=== PATIENT | female | born 1935 | race Caucasian/White ===

== ENCOUNTER 2024-05-30 07:58 | Inpatient (IN) | payer OTHER, SELFPAY ==
--- NOTE | 2024-04-26 12:41 | CM ---
Addendum entered by Elaina Luevano 05/28/24 10:42:
Spoke again with patient. She has obtained a commode.
Original Note:
Patient is scheduled for an elective L TKR on 05/09/24. Spoke with patient prior to surgery via telephone. Introduced role of Orthopedic Navigator. Patient reports that she lives with her daughter in a two story home. There are no steps to enter and
a flight of steps to the second floor. She currently functions independently and uses a cane or rollator when she goes out. She also has a rolling walker, shower seat, comfort height toilets and grab bars by the toilet. She has never had VN
services. PCP is Dr. Dioni Robb.
Discussed orthopedic program and post surgical plans. Reviewed anticipated length of stay and that goal is for her to return home at discharge. Also reviewed outpatient PT. Patient is in agreement with tentative plan and will go directly to
outpatient PT at [facility]. She will have support from her daughter when she goes home.
Patient will complete online education.
Plan: Orthopedic Navigator will remain available to assist with the care of patient and will reassess discharge needs after surgery.
[2024-05-09 12:11] VITALS: BMI 35.1
[2024-05-09 13:57] LABS: Hematocrit 39.5 % (37.0-47.0); Hemoglobin 13.5 g/dL (12.0-16.0); Mean Corp Hgb Conc. 34.2 g/dL (33.0-37.0); Mean Corpuscular Hgb 31.7 pg (27.0-31.0); Mean Corpuscular Volume 92.7 fL (81.0-99.0); Mean Platelet Volume 11.1 fL (7.4-10.4); Platelet Count 238 10^3/uL (130-400); Red Blood Cell Count 4.26 10^6/uL (4.20-5.40); White Blood Cell Count 11.1 10^3/uL (4.8-10.8)
[2024-05-09 14:30] LABS: ALT (SGPT) 20 U/L (0-35); AST (SGOT) 30 U/L (14-36); Albumin 4.3 g/dl (3.5-5.0); Alkaline Phosphatase 80 U/L (38-126); Blood Urea Nitrogen 23 mg/dl (7-17); Calcium 10.1 mg/dl (8.4-10.2); Carbon Dioxide 29 mmol/L (22-30); Chloride 97 mmol/L (98-107); Estimated Creatinine Clearance 74 ml/min; Glucose 105 mg/dl (70-99); Potassium 4.6 mmol/L (3.5-5.1); Sodium 136 mmol/L (135-145); Total Bilirubin 1.2 mg/dl (0.2-1.3); Total Protein 7.1 g/dl (6.3-8.2); eGFR > 60.00
[2024-05-09 15:01] VITALS: BMI 35.1
[2024-05-10 08:49] LABS: Glycohemoglobin (HgbA1c) 7.2 % (4.0-5.6)
--- NOTE | 2024-05-29 17:05 | W.PN.UPDATE ---
Update Note
Progress Note Update
Post-op Rxs sent due to holiday pharmacy hours of /-
[2024-05-30] VITALS (12 sets, daily range): BP systolic 97–151; BP diastolic 49–72; PULSE 66–67; O2SAT 89–90
[2024-05-30] MEDS: NORMOSOL-R 1000 IV ×2 (08:20→12:00)
[2024-05-30] MEDS: TYLENOL 650 MG PO ×5 (08:20→23:29)
[2024-05-30] MEDS: CELEBREX 200 MG PO (08:20)
[2024-05-30 08:23] LABS: Glucose - Point of Care 155 mg/dl (70-99)
--- NOTE | 2024-05-30 09:15 | CM ---
Addendum entered by Elaina Luevano 05/30/24 09:37:
VN confirms their ability to accept case. statement request clerk to fax discharge instructions to VN when complete.
Original Note:
Reviewed chart. Patient is here for planned L TKR. Met with patient and her daughter, Jeanine, at bedside prior to surgery. Confirmed information previously obtained for assessment. Also discussed discharge plans. The plan is for patient to return
home at discharge. Her daughter will be home with her and can provide support if needed. Discussed outpatient PT vs VN services. Patient and daughter would be more comfortable with VN services initially. Reviewed start of care (tentatively 06/01),
services to be ordered (PT, SN) and frequency/duration of services. Options list provided and PAC data reviewed. Patient selects VN.
Patient has a rolling walker, commode, built in shower seat and a cane.
VN referral was completed and sent to [facility] through [facility] with request for start of care on 06/01.
Discharge prescriptions were sent to patient's pharmacy already; patient confirmed that her family is picking them up today.
[2024-05-30 12:05] LABS: Glucose - Point of Care 138 mg/dl (70-99)
[2024-05-30] MEDS: ROXICODONE 5 MG PO (12:08)
[2024-05-30 12:46] LABS: Glucose - Point of Care 149 mg/dl (70-99)
[2024-05-30] MEDS: NOVOLOG FLEXPEN-MODERATE RESISTANCE SC (12:55)
[2024-05-30] MEDS: MAGNESIUM OXIDE 250 MG PO (13:00)
[2024-05-30] MEDS: LANTUS 0.0500000000000000028 UNITS SC (13:02)
--- NOTE | 2024-05-30 13:23 | W.DS.TRANS ---
DC Summary - Bean Snipper
-
Discharge Instructions:
Discharge Diagnosis/Procedures L TKA Dr. Morocho 05/30/24
Diet Diabetic, Carb Controlled
Activity With Walker
Driving Restrictions No driving
Bathing Restrictions OK to Shower
Other Services VN,PT
Instructions:
Stand-Alone Forms: Total Hip/Knee Replacement D/C
Changes to Home Medications: Yes
Discharge Medications:
DC Medications w/original date entered in [employer] [facility]
calcium carbonate 600 mg-vitamin D3 12.5 mcg (500 unit) capsule 1 ea PO BID 01/01/18
glucosamine sulfate dipotassium Cl 500 mg-chondroitin 400 mg capsule (Glucosamine Sulfate 2 KCL-Chondroitin) 1 cap PO TID 01/01/18
lovastatin 20 mg tablet 20 mg PO QPM 01/01/18
magnesium oxide 250 mg PO NOON 01/01/18
metformin 500 mg tablet 500 mg PO BID 01/01/18
amlodipine 5 mg tablet 5 mg PO NOON 05/04/24
artifi.tears(hypromellose)(PF) 1 drp BOTH EYES BID 05/04/24
hydrochlorothiazide 25 mg tablet 25 mg PO DAILY 05/04/24
lidocaine 5 % topical patch 1 patch topical DAILY PRN pain 05/04/24
metoprolol succinate 25 mg tablet,extended release 24 hr 25 mg PO BID 05/04/24
multivitamin 1 tab PO NOON 05/04/24
polyethylene glycol 3350 17 gram/dose oral powder (Miralax) 17 g PO Q48H 05/04/24
mupirocin 2 % topical ointment 1 applic topical BID infection prevention #1 tube 05/09/24
cefadroxil 500 mg capsule 500 mg PO BID infection prevention #14 caps 05/29/24
celecoxib 200 mg capsule 200 mg PO DAILY anti-inflammatory #14 caps 05/29/24
famotidine 20 mg tablet 20 mg PO HS GI prophylaxis #30 tabs 05/29/24
gabapentin 300 mg capsule 300 mg PO HS sleep/pain #10 caps 05/29/24
ondansetron 4 mg disintegrating tablet 4 mg PO Q6H PRN n/v #20 tabs 05/29/24
oxycodone 5 mg tablet 5 mg PO Q6H PRN 1 tab moderate pain, 2 tabs severe pain #30 tabs 05/29/24
Probiotic 1 cap PO BID ##0 05/30/24
acetaminophen 325 mg capsule (Tylenol) 650 mg (2 x 325 mg) PO QID #2 caps 05/30/24
aspirin 325 mg tablet 325 mg PO DAILY blood clot prevention #1 tab 05/30/24
docusate sodium 100 mg capsule (Colace) 100 mg PO BID stool softner #1 cap 05/30/24
magnesium hydroxide 400 mg/5 mL oral suspension (Milk of Magnesia) 30 ml PO HS PRN Constipation #1 mL 05/30/24
sennosides 8.6 mg tablet (Senokot) 17.2 mg (2 x 8.6 mg) PO BID laxative #2 tabs 05/30/24
Home Medication Changes
cefadroxil 500 mg capsule 500 mg PO BID infection prevention #14 caps 05/29/24
celecoxib 200 mg capsule 200 mg PO DAILY anti-inflammatory #14 caps 05/29/24
famotidine 20 mg tablet 20 mg PO HS GI prophylaxis #30 tabs 05/29/24
gabapentin 300 mg capsule 300 mg PO HS sleep/pain #10 caps 05/29/24
ondansetron 4 mg disintegrating tablet 4 mg PO Q6H PRN n/v #20 tabs 05/29/24
oxycodone 5 mg tablet 5 mg PO Q6H PRN 1 tab moderate pain, 2 tabs severe pain #30 tabs 05/29/24
Pending Results: No
--- NOTE | 2024-05-30 14:27 | PTCARENOTE ---
1235: Patient arrived to 2S post L TKR. Full head to toe assessment completed. B/L LE neurovascular assessment completed. L knee aqaucell clean dry and intact. Patient wearing 2L NC with SpO2 greater than 92%. IVF running per order. Bed in lowest
position and call levy within reach. Family at bedside.
[2024-05-30] MEDS: COMPAZINE 5 MG PO (14:33)
[2024-05-30] MEDS: ZOFRAN 4 MG IV (16:15)
[2024-05-30 17:08] LABS: Glucose - Point of Care 180 mg/dl (70-99)
[2024-05-30] MEDS: ANCEF 5 IV (17:22)
[2024-05-30] MEDS: ASPIRIN 325 MG PO (17:22)
[2024-05-30] MEDS: LIPITOR 10 MG PO (17:22)
[2024-05-30] MEDS: GLUCOPHAGE 500 MG PO (17:22)
[2024-05-30] MEDS: NOVOLOG FLEXPEN-MODERATE RESISTANCE 1 UNITS SC (17:23)
[2024-05-30] MEDS: SENOKOT 17.1999999999999993 MG PO (20:37)
[2024-05-30] MEDS: BACTROBAN 2% OINTMENT 1 APPLIC NASAL (20:37)
[2024-05-30] MEDS: TOPROL XL 25 MG PO (20:37)
[2024-05-30] MEDS: TORADOL 15 MG IV (20:37)
[2024-05-30] MEDS: COLACE 100 MG PO (20:37)
[2024-05-30 21:35] LABS: Glucose - Point of Care 268 mg/dl (70-99)
[2024-05-30] MEDS: NEURONTIN 300 MG PO (21:50)
[2024-05-31] MEDS: ANCEF 5 IV (02:31)
[2024-05-31] MEDS: TYLENOL 650 MG PO ×2 (03:30→08:11)
[2024-05-31 03:48] VITALS: BP 113/46
[2024-05-31 07:07] VITALS: BP 113/53
[2024-05-31 07:40] LABS: Glucose - Point of Care 149 mg/dl (70-99)
[2024-05-31] MEDS: CELEBREX 200 MG PO (08:10)
[2024-05-31] MEDS: NOVOLOG FLEXPEN-MODERATE RESISTANCE SC (08:10)
[2024-05-31] MEDS: ASPIRIN 325 MG PO (08:10)
[2024-05-31] MEDS: TORADOL 15 MG IV (08:11)
[2024-05-31] MEDS: SENOKOT 17.1999999999999993 MG PO (08:13)
[2024-05-31] MEDS: COLACE 100 MG PO (08:13)
[2024-05-31] MEDS: GLUCOPHAGE 500 MG PO (08:16)
[2024-05-31] MEDS: BACTROBAN 2% OINTMENT 1 APPLIC NASAL (08:16)
[2024-05-31] MEDS: LANTUS 0.0500000000000000028 UNITS SC (08:40)
[2024-05-31] MEDS: TOPROL XL PO (09:06)
[2024-05-31 09:25] VITALS: BP 131/65; PULSE 70; O2SAT 91
--- NOTE | 2024-05-31 09:27 | W.PN.ORTHO ---
Today's Communication / Plan
-
80-year-old female postop day 1 left total knee arthroplasty with Dr. Morocho doing well.
-Discharge planning: Set up for home visiting nurses and transition towards outpatient physical therapy
-DVT PPx: ALMA ROSA stockings, calf pumps, daily aspirin as ordered
-Pain control with current regimen
-Discharge medications were sent advanced due to holiday; patient reports family has picked them up
-Regular diet, tolerating well at this time.
-Plan for outpatient follow-up 2 weeks in the office, contact the office sooner for questions or concerns. Plan for discharge today. Discharge orders placed
Assessment
.
Distal Motor Intact: Yes
Dressing:
Clean, dry and intact.
Plan
.
Surgery / Date: [address] Morocho
DVT Prophylaxis: Aspirin
Activity:
Out of bed.
PT/OT
Discharge Plan: Home w/ VN and Home w/ Outpatient PT
Subjective
.
.:
Patient resting comfortably.
Vital Signs and Labs
.
Vital Signs and Labs:
Lab Results
05/09/24 12:08
05/09/24 12:08
Temp Pulse Resp BP Pulse Ox
98.4 F 77 16 113/53 95
05/31/24 07:07 05/31/24 07:07 05/31/24 07:07 05/31/24 08:13 05/31/24 07:07
Non-invasive Hgb result: 13.1
--- NOTE | 2024-05-31 09:35 | W.DCSUMMARY ---
Discharge Summary
Discharge Data
Date of Admission: 05/30/24
Date of Discharge: 05/31/24
-
Pending Results: No
Hospital Course
The patient underwent left total knee arthroplasty [address] Milton Garcia without complications. The patient recovered in the PACU and was transferred to the floor. The postoperative course remained uncomplicated. At the time of
discharge, the patient was noted to be tolerating a regular diet, ambulating with adherence to weightbearing and activity restrictions, able to accomplish activities of daily living at baseline level, and had pain controlled on oral medications.
Prior to discharge, the patient was provided with appropriate discharge/follow-up/return instructions, and discharge medications
Discharge Plan
-
Patient Disposition: Home with Home Care
Discharge Diagnosis/Procedures: L TKA Dr. Morocho 05/30/24
Condition: Good
Diet: Diabetic, Carb Controlled
Activity: As tolerated and With Walker
Driving Restrictions: No driving
Bathing Restrictions: OK to Shower
Other Services: VN and PT
Wound Care: Maintain Aquacel dressing for 7 to 10 days; may remove at that time
Stand Alone Forms: Total Hip/Knee Replacement D/C
Referrals:
[facility] [Outside] - in one day (Physical therapy and nursing)
Dioni Robb MD [Family Provider] -
Milton Morocho MD [Active] - in two weeks (Call office to schedule appointment [phone]. If phone message was created in office [facility] reach out to you on 01 June 2024 to assist with scheduling.)
Prescriptions:
New
mupirocin 2 % ointment
1 applic topical BID Qty: 1 0RF
Patient Comments:
patient applied thia am 05/30/24 at 0500..started applying bid on05/27/24 am
celecoxib 200 mg capsule
200 mg PO DAILY Qty: 14 0RF
Rx Instructions:
*take with food
*space out 2 hours from aspirin
cefadroxil 500 mg capsule
500 mg PO BID Qty: 14 0RF
Rx Instructions:
*Take w/ food
*Take w/ probiotic
*POST-OP USE
famotidine 20 mg tablet
20 mg PO HS Qty: 30 0RF
Rx Instructions:
post-op
gabapentin 300 mg capsule
300 mg PO HS Qty: 10 0RF
ondansetron 4 mg tablet,disintegrating
4 mg PO Q6H PRN (Reason: n/v) Qty: 20 0RF
Rx Instructions:
take 1/2h b/f pain med if recurrent nausea
allow to dissolve in mouth w/o water
oxycodone 5 mg tablet
5 mg PO Q6H PRN (Reason: 1 tab moderate pain, 2 tabs severe pain) Qty: 30 0RF
Rx Instructions:
Ongoing therapy
sennosides [Senokot] 8.6 mg tablet
17.2 mg PO BID Qty: 2 0RF
aspirin 325 mg tablet
325 mg PO DAILY Qty: 1 0RF
Rx Instructions:
Take with food
magnesium hydroxide [Milk of Magnesia] 400 mg/5 mL suspension
30 ml PO HS PRN (Reason: Constipation) Qty: 1 0RF
docusate sodium [Colace] 100 mg capsule
100 mg PO BID Qty: 1 0RF
acetaminophen [Tylenol] 325 mg capsule
650 mg PO QID Qty: 2 0RF
Continued
metformin 500 MG tablet
500 mg PO BID
lovastatin 20 MG tablet
20 mg PO QPM
magnesium oxide 250 MG tablet
250 mg PO NOON
calcium carbonate-vitamin D3 1 EACH capsule
1 ea PO BID
amlodipine 5 mg Tablet
5 mg PO NOON
lidocaine 5 % Adhesive Patch,Medicated
1 patch TOPICAL DAILY PRN (Reason: pain)
hydrochlorothiazide 25 mg Tablet
25 mg PO DAILY
metoprolol succinate 25 mg Tablet Extended Release 24 Hr
25 mg PO BID
polyethylene glycol 3350 [Miralax] 17 gram/dose Powder
17 g PO Q48H
artifi.tears(hypromellose)(PF)
1 drp BOTH EYES BID
Changed
Probiotic
1 cap PO BID Qty: 0 0RF
Held
Glucosamine Sulf-Chondroitin 1 EACH capsule
1 cap PO TID
Hold Instructions: Resume on 06/06/24.
multivitamin Tablet
1 tab PO NOON
Hold Instructions: Resume on 06/06/24.
Discontinued
aspirin [Aspir-Low] 81 MG tablet,delayed release (DR/EC)
81 mg PO DAILY
docusate sodium 100 mg Capsule
100 mg PO PRN PRN (Reason: consitpation)
Milk of Magnesia
1 unit PO PRN PRN (Reason: constipation)
Discharge Orders:
Discharge Patient (As Directed); Ordered 05/31/24
Ordered By: Brandon Barron
Discharge Date and Time
Print Language: TAJIK
[2024-05-31 09:59] VITALS: BP 124/58; PULSE 69; O2SAT 92
[2024-05-31] MEDS: MAGNESIUM OXIDE 250 MG PO (11:37)
[2024-05-31 11:39] VITALS: BP 136/60
== END 2024-05-31 11:55 | disposition home health service (06) | DRG 470 ==
LOC: 2 SOUTH 07:58
PROVIDERS: ADMITTING PHYSICIAN Orthopaedic Surgery; FAMILY PHYSICIAN Family Medicine
PROC: 0SRD0J9 Replacement of Left Knee Joint with Synthetic Substitute, Cemented, Open Approach (ICD-10-PCS; 2024-05-30)
DX: M17.12 Unilateral primary osteoarthritis, left knee (principal); E66.9 Obesity, unspecified; I10 Essential (primary) hypertension; I25.10 Atherosclerotic heart disease of native coronary artery without angina pectoris; G47.33 Obstructive sleep apnea (adult) (pediatric); E78.5 Hyperlipidemia, unspecified; E11.40 Type 2 diabetes mellitus with diabetic neuropathy, unspecified; Z68.35 Body mass index [BMI] 35.0-35.9, adult; Z79.82 Long term (current) use of aspirin; Z79.84 Long term (current) use of oral hypoglycemic drugs
CPT/HCPCS: 36415; 73560; 80053; 82962; 83036; 85027; 87070; 97110; 97116; 97162; 97166; 97530; 97535; C1713; C1776

== ENCOUNTER 2024-06-07 15:33 | Emergency (ER) | payer OTHER, SELFPAY ==
[2024-06-07 15:53] VITALS: BP 147/52
[2024-06-07 16:18] LABS: % Basophils 0.7 % (0-2); % Eosinophils 2.9 % (0-6); % Immature Granulocytes 0.5 % (0-0.5); % Monocytes 8.5 % (1.7-9.3); % Neutrophils 52.4 % (42.2-75.2); Absolute Basophils 0.1 10^3/uL (0-0.2); Absolute Eosinophils 0.3 10^3/uL (0-0.7); Absolute Immature Granulocytes 0.1 10^3/uL (0-0.05); Absolute Lymphocytes 3.6 10^3/uL (1.2-3.4); Absolute Monocytes 0.9 10^3/uL (0.1-0.6); Absolute Neutrophils 5.5 10^3/uL (1.4-6.5); Hematocrit 31.8 % (37.0-47.0); Mean Corp Hgb Conc. 34.6 g/dL (33.0-37.0); Mean Corpuscular Hgb 31.9 pg (27.0-31.0); Mean Corpuscular Volume 92.2 fL (81.0-99.0); Mean Platelet Volume 9.4 fL (7.4-10.4); Nucleated Red Blood Cells % 0 %; Platelet Count 234 10^3/uL (130-400); Red Blood Cell Count 3.45 10^6/uL (4.20-5.40); Red Cell Dist. Width 13.5 % (11.5-14.5); White Blood Cell Count 10.4 10^3/uL (4.8-10.8)
[2024-06-07 16:30] LABS: D-Dimer 2.44 ug/mlFEU (0.00-0.50)
[2024-06-07 16:35] LABS: ALT (SGPT) 34 U/L (0-35); AST (SGOT) 44 U/L (14-36); Albumin 3.7 g/dl (3.5-5.0); Alkaline Phosphatase 65 U/L (38-126); Blood Urea Nitrogen 33 mg/dl (7-17); Calcium 9.1 mg/dl (8.4-10.2); Carbon Dioxide 30 mmol/L (22-30); Chloride 95 mmol/L (98-107); Glucose 164 mg/dl (70-99); Potassium 4.3 mmol/L (3.5-5.1); Sodium 134 mmol/L (135-145); Total Bilirubin 1.3 mg/dl (0.2-1.3); Total Protein 6.2 g/dl (6.3-8.2); eGFR > 60.00
[2024-06-07 16:46] VITALS: BMI 35.8
[2024-06-07 16:50] VITALS: BP 130/73
--- NOTE | 2024-06-07 16:55 | ED.GENMED ---
History of Present Illness
General
Chief Complaint: Chest Pain
Source: patient and family
Exam Limitations: none
Time Seen by Provider: 06/07/24 16:41
Nursing documentation reviewed up to this point in time: agreed with
History of Present Illness
History of Present Illness:
88-year-old female presents emergency room complaining of right-sided chest pain and swelling in her left leg. She had left knee replacement on 05/30/2024. This morning she had pain in her right chest with deep breath. She denies any pain at this
time.
Past History
Past History
ED Past Medical History: HTN, Hypercholesterolemia and NIDDM
ED Past Surgical History: Cholecystectomy and Orthopedic (Left knee replacement by Dr. Morocho 05/30/2024)
Social History
Tobacco: Non-smoker
Alcohol: None
Personal:
Living: with family
Employment: Retired
Family History
Family History: Hypertension; Negative Diabetes
Review of Systems
Review of Systems
Allergies reviewed?: Yes
All Other Systems: Not applicable
Constitutional: Reports no symptoms; Denies fever
EENT: Reports no symptoms
Respiratory: Reports trouble breathing
Cardiac: Reports chest pain
ABD/GI: Reports no symptoms
: Reports no symptoms
Musculoskeletal: Reports joint swelling
Skin: Reports no symptoms
Neurological: Reports no symptoms
Endocrine: Reports no symptoms
Hematologic/Lymphatic: Reports no symptoms
Psychiatric: Reports no symptoms
Phy Exam
Physical Exam
Physical Exam:
Physical Exam
General: no apparent distress, not acutely ill
Neck: supple. no meningeal signs. normal posterior pharynx
Heart: s1/s2 regular rate and rhythm, no murmur. equal radial
pulses.
HEENT: Pupils equal round reactive to light, EOMI
Lungs: no acute respiratory distress. clear bilaterally
Abdomen: normal bowel sounds. not tender. no CVAT
Neuro: alert and oriented. no focal neurological deficits cranial nerves II through XII intact
Skin: no rash
Psychiatric: well kept. interactive and cooperative
Extremities: no edema. no calf tenderness. negative homans. good distal pulses, healing incision left knee, edema left knee
Scores
Heart Score for Chest Pain Patients
STEMI patient?: No
History: Slightly or Non-Suspicious
ECG: Normal
Age: >/= 65 years
Risk Factors: 1 or 2 Risk Factors
Troponin: </= Normal Limit
Heart Score for Chest Pain Patients: 3
Heart Score Risk: 2.5% MACE over next 6 weeks
Course
Orders/Labs/Results
Orders:
Orders
06/07/24 15:56
Electrocardiogram (*1) Urgent
Reason for Study: Chest Pain
EKG- Treatment ONCE
06/07/24 16:07
CMP [Comprehensive Metabolic Panel] Urgent
Complete Blood Count/With Diff Urgent
D-Dimer Urgent
06/07/24 16:44
CT Chest Pe Study Urgent
Comment:
Reason For Exam: short of breath, elevated ddimer, chest pain
06/07/24 16:54
US Periph Venous LOWER Ext LT Urgent
Comment:
Reason For Exam: left leg swelling
06/07/24 16:59
NT-proBNP Urgent
Troponin I Urgent
Abnormal Lab Results
06/07/24
16:07
RBC 3.45 L 10^6/uL
(4.20-5.40)
Hgb 11.0 L g/dL
(12.0-16.0)
Hct 31.8 L %
(37.0-47.0)
MCH 31.9 H pg
(27.0-31.0)
Abs Immat Gran (auto) 0.1 H 10^3/uL
(0-0.05)
Absolute Lymphs (auto) 3.6 H 10^3/uL
(1.2-3.4)
Absolute Monos (auto) 0.9 H 10^3/uL
(0.1-0.6)
D-Dimer 2.44 H ug/mlFEU
(0.00-0.50)
Sodium 134 L mmol/L
(135-145)
Chloride 95 L mmol/L
(98-107)
BUN 33 H mg/dl
(7-17)
Glucose 164 H mg/dl
(70-99)
AST 44 H U/L
(14-36)
Total Protein 6.2 L g/dl
(6.3-8.2)
06/07/24 16:07
06/07/24 16:07
Vital Signs
Initial and Last Documented VS:
Initial Vital Signs
Temp Pulse Resp BP Pulse Ox
98.0 F 76 18 147/52 95
06/07/24 15:53 06/07/24 15:53 06/07/24 15:53 06/07/24 15:53 06/07/24 15:53
Last Documented Vital Signs
Temp Pulse Resp BP Pulse Ox
98.0 F 72 20 130/92 97
06/07/24 15:53 06/07/24 19:50 06/07/24 19:50 06/07/24 19:50 06/07/24 19:50
MDM/Problems Addressed
Differential Diagnosis Includes:
PE, ACS, pneumonia, COPD, DVT
MDM/Problems Addressed:
88-year-old female with shortness of breath likely due to COPD. No signs of PE or DVT. Wound does not appear infected. Patient stable for discharge follow-up with Dr. Morocho.
Chronic conditions affecting care: HTN
Acute Exacerbation and/or Progression of Chronic Illness: HTN
*Radiology
Radiology exam reviewed: radiology read reviewed (CT chest no acute findings, chronic COPD changes, ultrasound left lower extremity no signs DVT)
*Pulse Oximetry
Patient hypoxic: no
*EKG
Interpreted by ED Provider?: Yes
EKG Intrepretation Date: 06/07/24
EKG Intrepretation Time: 16:01
Interpretation: normal
Comparison EKG: changes noted
Heart Rate: 72
Rate: normal
Rhythm: sinus
[place]: normal axis
Interval: normal interval
QRS Pattern: normal QRS
Ischemia: no ischemia
*Consulting Solution Manager Interpretation
Rate: normal
Interpretation: normal
Heart Rate: 66
Rhythm: sinus
*Critical Care Note
Total Time (30-74mins, 75-104mins- exclusive of procedures): Not Applicable
Data Reviewed
Review of Other/Old Records Reveals: Discharge Summary (Left total knee arthroplasty by Dr. Morocho 05/30/2024)
Source: records
Patient Management
Social determinants of health affecting care: Living situation
Escalation/DeEscalation of care consider admission/obs:
Admit not indicated
ED Attending Note
-
Portions of this chart may have been created with voice recognition software.� Occasional wrong word or��sound alike� substitutions may have occurred due to the inherent limitations of voice recognition software.
Discharge Plan
Departure
Patient Disposition: Home (Routine Discharge)
Date of Disposition: 06/07/24
Time of Disposition: 19:16
Patient with high blood pressure during this ER visit?: Yes
Condition: Good
Discharge Problem:
Mild shortness of breath, Chest pain, Localized swelling of left lower leg
Instructions: Chronic obstructive pulmonary disease (COPD), Swelling, Chest Pain PCP Follow Up
Prescriptions:
No Action
metformin 500 MG tablet
500 mg PO BID
lovastatin 20 MG tablet
20 mg PO QPM
magnesium oxide 250 MG tablet
250 mg PO NOON
Glucosamine Sulf-Chondroitin 1 EACH capsule
1 cap PO TID
Hold Instructions: Resume on 06/06/24.
calcium carbonate-vitamin D3 1 EACH capsule
1 ea PO BID
multivitamin Tablet
1 tab PO NOON
Hold Instructions: Resume on 06/06/24.
amlodipine 5 mg Tablet
5 mg PO NOON
lidocaine 5 % Adhesive Patch,Medicated
1 patch TOPICAL DAILY PRN (Reason: pain)
hydrochlorothiazide 25 mg Tablet
25 mg PO DAILY
metoprolol succinate 25 mg Tablet Extended Release 24 Hr
25 mg PO BID
polyethylene glycol 3350 [Miralax] 17 gram/dose Powder
17 g PO Q48H
artifi.tears(hypromellose)(PF)
1 drp BOTH EYES BID
mupirocin 2 % ointment
1 applic topical BID Qty: 1 0RF
Patient Comments:
patient applied thia am 05/30/24 at 0500..started applying bid on05/27/24 am
celecoxib 200 mg capsule
200 mg PO DAILY Qty: 14 0RF
Rx Instructions:
*take with food
*space out 2 hours from aspirin
cefadroxil 500 mg capsule
500 mg PO BID Qty: 14 0RF
Rx Instructions:
*Take w/ food
*Take w/ probiotic
*POST-OP USE
famotidine 20 mg tablet
20 mg PO HS Qty: 30 0RF
Rx Instructions:
post-op
gabapentin 300 mg capsule
300 mg PO HS Qty: 10 0RF
ondansetron 4 mg tablet,disintegrating
4 mg PO Q6H PRN (Reason: n/v) Qty: 20 0RF
Rx Instructions:
take 1/2h b/f pain med if recurrent nausea
allow to dissolve in mouth w/o water
oxycodone 5 mg tablet
5 mg PO Q6H PRN (Reason: 1 tab moderate pain, 2 tabs severe pain) Qty: 30 0RF
Rx Instructions:
Ongoing therapy
sennosides [Senokot] 8.6 mg tablet
17.2 mg PO BID Qty: 2 0RF
aspirin 325 mg tablet
325 mg PO DAILY Qty: 1 0RF
Rx Instructions:
Take with food
magnesium hydroxide [Milk of Magnesia] 400 mg/5 mL suspension
30 ml PO HS PRN (Reason: Constipation) Qty: 1 0RF
docusate sodium [Colace] 100 mg capsule
100 mg PO BID Qty: 1 0RF
acetaminophen [Tylenol] 325 mg capsule
650 mg PO QID Qty: 2 0RF
Probiotic
1 cap PO BID Qty: 0 0RF
Referrals:
Dioni Robb MD [Family Provider] -
Milton Morocho MD [Active] - Call in 1-3 days for appt
Interventions
Interventions:
*Risk Screen - Suicide Last Done: 06/07/24 16:46
*General Assessment Last Done: 06/07/24 15:53
*Neglect/Abuse Screening Last Done: 06/07/24 16:46
ED- Fall Risk Assessment Last Done: 06/07/24 16:46
*ED COVID-19 Vaccine History Last Done: 06/07/24 15:53
*Nursing Disposition Last Done: 06/07/24 19:50
ED- Cardiac Assessment Last Done: 06/07/24 16:46
Discharge Date and Time
Discharge Date/Time: 06/07/24 19:51
Print Language: [place]
[2024-06-07 17:34] LABS: NT-proBNP 491 pg/ml; Troponin I < 0.012 ng/ml
[2024-06-07 19:50] VITALS: BP 130/92
== END 2024-06-07 19:51 | disposition home or self-care (01) ==
LOC: EMR 15:33
PROVIDERS: EMERGENCY PHYSICIAN Emergency Medicine; FAMILY PHYSICIAN Family Medicine
DX: R06.02 Shortness of breath (principal); R07.89 Other chest pain; R22.42 Localized swelling, mass and lump, left lower limb; I10 Essential (primary) hypertension; E78.00 Pure hypercholesterolemia, unspecified; E11.9 Type 2 diabetes mellitus without complications; Z82.49 Family history of ischemic heart disease and other diseases of the circulatory system; Z90.49 Acquired absence of other specified parts of digestive tract; Z96.652 Presence of left artificial knee joint
CPT/HCPCS: 99284; 71275; 80053; 83880; 84484; 85025; 85379; 93005; 93971; Q9967

== ENCOUNTER → 2024-09-12 09:23 | Outpatient (REF) | payer OTHER, SELFPAY | LOC: RAD 09:23 | PROVIDERS: ATTENDING PHYSICIAN Nurse Practitioner Family | DX: M25.512 Pain in left shoulder (principal) | CPT/HCPCS: 72050; 73030 ==

== ENCOUNTER → 2025-01-21 10:17 | Outpatient (REF) | payer OTHER, SELFPAY | LOC: RCS 10:17 | PROVIDERS: ATTENDING PHYSICIAN Internal Medicine Cardiovascular Disease; FAMILY PHYSICIAN Family Medicine | DX: I35.8 Other nonrheumatic aortic valve disorders (principal) | CPT/HCPCS: 93306 ==